=== PATIENT | female | born 1965 | race Two or more races ===

== ENCOUNTER 2017-12-31 23:15 | Emergency (ER) | payer MEDICAID ==
[~2017-12-31] VITALS: Ht 160 cm; Wt 86.2 kg
--- NOTE | 2017-12-31 23:28 | NUR ---
CALLED PT IN [place], NO RESPONSE
[2018-01-01 00:03] VITALS: BP 179/90
[2018-01-01 00:47] LABS: APPEARANCE,URINE SL CLOUDY (CLEAR); BILIRUBIN,URINE NEGATIVE (NEGATIVE); BLOOD, URINE NEGATIVE Ery/uL (NEGATIVE); COLOR,URINE YELLOW (YELLOW); KETONES,URINE NEGATIVE (NEGATIVE); LEUKOCYTE ESTERASE ,URINE NEGATIVE (NEGATIVE); NITRITE, URINE POSITIVE (NEGATIVE); PROTEIN,URINE NEGATIVE (NEGATIVE); UGLUCOSE 3+ mg/dL (NEGATIVE); UROBILINOGEN,URINE 0.2 EU/dL (0.2)
[2018-01-01 00:51] LABS: BASOPHILS % (AUTO) 0.3 % (0.0-2.0); EOSINOPHILS % (AUTO) 0.2 % (0.0-6.0); HEMATOCRIT 41 % (33-45); HEMOGLOBIN 14.1 g/dL (11.5-14.8); LYMPHOCYTES # (AUTO) 1.6 /CMM (0.8-4.8); LYMPHOCYTES % (AUTO) 16.6 % (20.0-44.0); MEAN CORPUSCULAR HGB CONC 34 g/dl (31.0-36.0); MEAN CORPUSCULAR VOLUME 86 fL (82-100); MONOCYTES # (AUTO) 0.4 /CMM (0.1-1.30); MONOCYTES % (AUTO) 4.3 % (2.0-12.0); NEUTROPHILS # (AUTO) 7.4 /CMM (1.8-8.9); NEUTROPHILS % (AUTO) 78.6 % (43.0-81.0); PLATELET COUNT (AUTO) 195 /CMM (150-450); RDW COEFFICIENT OF VARIATION 13.7 (11.5-15.0); WHITE BLOOD COUNT (AUTO) 9.5 K/uL (4.3-11.0)
[2018-01-01 01:07] LABS: CALCIUM, SERUM 9.9 mg/dL (8.5-10.1); CREATININE 0.9 mg/dL (0.6-1.3); POTASSIUM 3.7 mmol/L (3.5-5.1)
[2018-01-01 01:15] LABS: ALBUMIN 3.5 g/dL (3.4-5.0); BILIRUBIN,DIRECT 0.1 mg/dL (0.0-0.2); BILIRUBIN,TOTAL 0.4 mg/dL (0.2-1.0); TOTAL PROTEIN, SERUM 8.1 g/dL (6.4-8.2)
[2018-01-01 01:17] LABS: BACTERIA,URINE 3+ /HPF (None Seen); RBC,URINE 0-2 /HPF (0-2); SQUAMOUS EPITHELIAL CELL,UR Few /HPF (None Seen)
[2018-01-01] MEDS ORDERED: CIPROFLOXACIN HCL 500 MG TABLET PO ONE (01:30)
[2018-01-01] MEDS ORDERED: IV NS 0.9% 1,000 ML BAG IV ONE (01:30)
[2018-01-01] MEDS ORDERED: CIPROFLOXACIN HCL 500 MG TABLET ONE (01:45)
== END 2018-01-01 02:40 | disposition home or self-care (01) ==
LOC: ER 23:24
DX: N30.00 Acute cystitis without hematuria (principal); E11.65 Type 2 diabetes mellitus with hyperglycemia; E78.5 Hyperlipidemia, unspecified; I10 Essential (primary) hypertension; Z90.710 Acquired absence of both cervix and uterus
CPT/HCPCS: 36415; 71045-TC; 80048-TC; 80076-TC; 81000-TC; 85025-TC; 87086-TC; 87186-TC; A4606; J7030; Z7610

== ENCOUNTER 2018-01-02 17:35 | Emergency (ER) | payer MEDICAID ==
[~2018-01-02] VITALS: Ht 162.6 cm; Wt 127.5 kg
--- NOTE | 2018-01-02 17:51 | NUR ---
PATIENT TO ED DT GENERALIZED WEAKNESS AND FEVER. PATIENT IS AWAKE AND ALERT. APPEARS IN NO DISTRESS. RESPIRATION EVEN AND UNLABORED. SKIN IS WARM TO TOUCH AND NON DIAPHORETIC, PATIENT IS AFEBRILE. VSS
[2018-01-02] MEDS ORDERED: ONDANSETRON HCL/PF 4 MG/2 ML VIAL IVP ONE (18:00)
[2018-01-02] MEDS ORDERED: IV NS 0.9% 1,000 ML BAG IV ONE (18:00)
[2018-01-02] MEDS ORDERED: ONDANSETRON HCL/PF 4 MG/2 ML VIAL ONE (18:05)
[2018-01-02 18:50] LABS: APPEARANCE,URINE CLEAR (CLEAR); BILIRUBIN,URINE NEGATIVE (NEGATIVE); BLOOD, URINE NEGATIVE Ery/uL (NEGATIVE); COLOR,URINE YELLOW (YELLOW); KETONES,URINE NEGATIVE (NEGATIVE); LEUKOCYTE ESTERASE ,URINE NEGATIVE (NEGATIVE); NITRITE, URINE NEGATIVE (NEGATIVE); PROTEIN,URINE NEGATIVE (NEGATIVE); UGLUCOSE 3+ mg/dL (NEGATIVE); UROBILINOGEN,URINE 0.2 EU/dL (0.2)
[2018-01-02 19:02] LABS: ALBUMIN 3.2 g/dL (3.4-5.0); BILIRUBIN,DIRECT 0.1 mg/dL (0.0-0.2); BILIRUBIN,TOTAL 0.3 mg/dL (0.2-1.0); CALCIUM, SERUM 8.7 mg/dL (8.5-10.1); CREATININE 0.7 mg/dL (0.6-1.3); POTASSIUM 3.8 mmol/L (3.5-5.1); TOTAL PROTEIN, SERUM 7.4 g/dL (6.4-8.2)
--- NOTE | 2018-01-02 19:03 | NUR ---
REPORT RECEIVED FROM ALKA MEDINA FOR FREDO.
[2018-01-02 20:39] LABS: BASOPHILS % (AUTO) 0.2 % (0.0-2.0); EOSINOPHILS % (AUTO) 0.2 % (0.0-6.0); HEMATOCRIT 40 % (33-45); HEMOGLOBIN 13.6 g/dL (11.5-14.8); LYMPHOCYTES # (AUTO) 1.3 /CMM (0.8-4.8); LYMPHOCYTES % (AUTO) 15.9 % (20.0-44.0); MEAN CORPUSCULAR HGB CONC 34 g/dl (31.0-36.0); MEAN CORPUSCULAR VOLUME 86 fL (82-100); MONOCYTES # (AUTO) 0.3 /CMM (0.1-1.30); MONOCYTES % (AUTO) 4.3 % (2.0-12.0); NEUTROPHILS # (AUTO) 6.3 /CMM (1.8-8.9); NEUTROPHILS % (AUTO) 79.4 % (43.0-81.0); PLATELET COUNT (AUTO) 163 /CMM (150-450); RED BLOOD CELL COUNT(AUTO) 4.65 MIL/uL (4.0-5.2)
--- NOTE | 2018-01-02 21:00 | NUR ---
ULTRASOUND AT BEDSIDE.
[2018-01-02 21:43] LABS: BACTERIA,URINE None seen /HPF (None Seen); RBC,URINE 0-2 /HPF (0-2); WBC,URINE 0-2 /HPF (0-3); YEAST,URINE Rare /HPF (None Seen)
--- NOTE | 2018-01-02 22:05 | NUR ---
PT OK TO DISCHARGE PER DR BRADY. IV removed. Catheter intact and site benign. Pressure and 4x4 applied to site. No bleeding noted.Patient discharged to home in stable condition. Written and verbal after care instructions given. Patient verbalizes understanding of instruction.Patient is awake and alert to self, day, and place. PT ambulatory with a steady gait
[2018-01-02 22:06] VITALS: BP 131/79
== END 2018-01-02 22:06 | disposition home or self-care (01) ==
LOC: ER 17:38
DX: N39.0 Urinary tract infection, site not specified (principal); R11.0 Nausea; E11.9 Type 2 diabetes mellitus without complications
CPT/HCPCS: 36415; 76705-TC; 80048-TC; 80076-TC; 81000-TC; 82962-TC; 85025-TC; 87086-TC; A4606; J2405; J7030; Z7610

== ENCOUNTER 2018-08-23 05:55 | Emergency (ER) | payer MEDICAID ==
[~2018-08-23] VITALS: Ht 160 cm; Wt 122.5 kg
--- NOTE | 2018-08-23 06:00 | NUR ---
PT CAME TO ER COMPLAINING OF FEVER, CHILLS, AND HEADACHE. PT IS WARM TO THE TOUCH, AAXO4. RESPIRATIONS ARE EVEN AND UNLABORED. PT PUT ON THE MONITOR AND PULSE OX. PT AWAITING CROW LU MD.
[2018-08-23] MEDS ORDERED: ACETAMINOPHEN ES 500 MG TABLET PO ONE (06:30)
[2018-08-23] MEDS ORDERED: ONDANSETRON HCL/PF 4 MG/2 ML VIAL IVP ONE (06:30)
[2018-08-23] MEDS ORDERED: IV NS 0.9% 1,000 ML BAG IV ONE (06:30)
--- NOTE | 2018-08-23 06:30 | NUR ---
IV 20G STARTED IN L AC. DELIMER AT BEDSIDE LABS DRAWN AND SENT TO LAB. PT BEING MONITORED.
[2018-08-23] MEDS ORDERED: ACETAMINOPHEN 325 MG TABLET ONE (06:42)
[2018-08-23] MEDS ORDERED: ONDANSETRON HCL/PF 4 MG/2 ML VIAL ONE (06:42)
[2018-08-23 06:49] LABS: BASOPHILS % (AUTO) 0.2 % (0.0-2.0); EOSINOPHILS % (AUTO) 0.1 % (0.0-6.0); HEMATOCRIT 41 % (33-45); HEMOGLOBIN 13.6 g/dL (11.5-14.8); LYMPHOCYTES # (AUTO) 1.3 /CMM (0.8-4.8); LYMPHOCYTES % (AUTO) 11.4 % (20.0-44.0); MEAN CORPUSCULAR HGB CONC 33 g/dl (31.0-36.0); MEAN CORPUSCULAR VOLUME 89 fL (82-100); MONOCYTES # (AUTO) 0.6 /CMM (0.1-1.30); MONOCYTES % (AUTO) 5.2 % (2.0-12.0); NEUTROPHILS # (AUTO) 9.8 /CMM (1.8-8.9); NEUTROPHILS % (AUTO) 83.1 % (43.0-81.0); PLATELET COUNT (AUTO) 187 /CMM (150-450); RED BLOOD CELL COUNT(AUTO) 4.59 MIL/uL (4.0-5.2); WHITE BLOOD COUNT (AUTO) 11.8 K/uL (4.3-11.0)
[2018-08-23 06:59] LABS: CREATININE 0.9 mg/dL (0.6-1.3); POTASSIUM 3.9 mmol/L (3.5-5.1)
[2018-08-23 07:07] LABS: ALBUMIN 3.4 g/dL (3.4-5.0); BILIRUBIN,DIRECT 0.1 mg/dL (0.0-0.2); BILIRUBIN,TOTAL 0.6 mg/dL (0.2-1.0); TOTAL PROTEIN, SERUM 7.8 g/dL (6.4-8.2)
--- NOTE | 2018-08-23 07:13 | NUR ---
received report from Sherry Tenorio for juan. patient in bed resting in no apparent distress noted.
[2018-08-23 07:45] LABS: APPEARANCE,URINE CLOUDY (CLEAR); BILIRUBIN,URINE NEGATIVE (NEGATIVE); BLOOD, URINE 1+ Ery/uL (NEGATIVE); COLOR,URINE YELLOW (YELLOW); KETONES,URINE NEGATIVE (NEGATIVE); LEUKOCYTE ESTERASE ,URINE 2+ (NEGATIVE); NITRITE, URINE POSITIVE (NEGATIVE); PROTEIN,URINE 1+ mg/dl (NEGATIVE); UGLUCOSE 1+ mg/dL (NEGATIVE); UROBILINOGEN,URINE 0.2 EU/dL (0.2)
[2018-08-23 07:53] LABS: WBC,URINE TOO NUMEROUS TO COUN /HPF (0-3)
[2018-08-23 07:54] LABS: BACTERIA,URINE 3+ /HPF (None Seen)
[2018-08-23] MEDS ORDERED: CEFTRIAXONE 1GM BAG (ER ONLY) 50 ML IV ONE (07:56)
[2018-08-23] MEDS ORDERED: CEFTRIAXONE 1GM BAG (ER ONLY) 1 GM/50 ML PIGGYBACK IV ONE (08:00)
[2018-08-23 08:32] VITALS: BP 128/72
--- NOTE | 2018-08-23 08:33 | NUR ---
Patient discharged to home in stable condition. Written and verbal after care instructions given. Patient verbalizes understanding of instruction.IV removed. Catheter intact and site benign. Pressure and 4x4 applied to site. No bleeding noted.
== END 2018-08-23 08:32 | disposition home or self-care (01) ==
LOC: ER 05:58
DX: N39.0 Urinary tract infection, site not specified (principal); E11.9 Type 2 diabetes mellitus without complications; R11.2 Nausea with vomiting, unspecified; I10 Essential (primary) hypertension; Z90.710 Acquired absence of both cervix and uterus
CPT/HCPCS: 36415; 80048-TC; 80076-TC; 81000-TC; 85025-TC; 87086-TC; 87186-TC; 87400; J0696; J2405; J7030

== ENCOUNTER 2018-09-01 20:00 | Emergency (ER) | payer MEDICAID ==
[~2018-09-01] VITALS: Ht 165.1 cm; Wt 124.7 kg
[2018-09-01 20:52] VITALS: BP 176/95
[2018-09-01] MEDS ORDERED: IBUPROFEN 600 MG TABLET PO ONE ×2 (21:53→22:00)
== END 2018-09-01 22:58 | disposition home or self-care (01) ==
LOC: ER 20:04
DX: M62.831 Muscle spasm of calf (principal); M79.662 Pain in left lower leg; I10 Essential (primary) hypertension; E11.9 Type 2 diabetes mellitus without complications; Z90.710 Acquired absence of both cervix and uterus
CPT/HCPCS: 73610-TC; 73650-TC